=== PATIENT | male | born 1995 | race Caucasian/White ===

== ENCOUNTER 2021-01-16 17:19 | Emergency (ER) | payer OTHER ==
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
[2021-01-16] MEDS ORDERED: HYDROmorphone 2 MG/ML VIAL IM STA ×2 (18:47→20:11)
[2021-01-16] MEDS ORDERED: KETOROLAC 15 MG/ML VIAL IM STA (18:47)
[2021-01-16] MEDS ORDERED: oxyCODONE/ACET 5/325 Prepack 4 PO STA (20:03)
[2021-01-16 20:15] VITALS: BP 133/92
--- NOTE | 2021-01-16 20:29 | Ultrasound Report ---
PROCEDURE: Duplex Ext Veins Right INDICATIONS: right lower leg pain, recent surgery and travel TECHNIQUE: Real-time imaging, as well as color and pulse Doppler interrogation, were performed of the lower extr emity deep veins from the inguinal ligament to the popliteal fossa. COMPARISON: None. FINDINGS: The deep veins are normally compressible, and free of intraluminal thrombus. Color and pu lse Doppler demonstrate normal phasic intraluminal flow. There is normal augmentation response to di stal compression maneuver. IMPRESSION: The deep venous system appears free of thrombosis into the popliteal area, but calf vein dialysis is limited by presence of stitches. Note is made of what appears to be small Goyal's cyst at the medial and lateral right knee area, keny uring up to 2.2 x 0.7 x 1.9 cm medially and more laterally 2.0 x 1.6 x 0.6 cm. Reviewed by: Rafat Chery MD on 01/16/2021 8:28 PM PDT Approved by: Rafat Chery MD on 01/16/2021 8:28 PM PDT Station ID: [id number]
== END 2021-01-16 20:35 | disposition home or self-care (01) ==
LOC: ED 17:19
DX: G89.18 Other acute postprocedural pain (principal); Z76.0 Encounter for issue of repeat prescription; Z87.891 Personal history of nicotine dependence
CPT/HCPCS: 93971; 96372; 99283; J1170

== ENCOUNTER 2021-01-21 09:41 | Outpatient (CLI) | payer OTHER ==
--- NOTE | 2021-01-21 10:51 | XRAY Report ---
PROCEDURE: Tib/Fib RT INDICATIONS: RIGHT TIB/FIB PX TECHNIQUE: 2 views of the tibia and fibula were acquired. COMPARISON: None available. FINDINGS: Bones: Postsurgical changes are demonstrated status post prior open reduction and internal fixation of a mildly comminuted tibial shaft fracture. Intramedullary glen is present with proximal and distal interlocking screws. There is also a mildly comminuted fibular shaft fracture demonstrated. The fract ure lines remain visible with suggestion of early callus formation. Soft tissues: There are nonspecific clustered soft tissue calcifications medial to the distal tibial shaft IMPRESSION: 1. Postsurgical and posttraumatic changes demonstrated status post ORIF of a distal tibial shaft frac ture. No definite evidence of hardware failure. 2. Healing fractures of the tibial and fibular shafts. Reviewed by: Kvng Merchant MD on 01/21/2021 10:49 AM PDT Approved by: Kvng Merchant MD on 01/21/2021 10:49 AM PDT Station ID: [id number]
== END 2021-01-21 23:59 | disposition home or self-care (01) ==
LOC: DI.N 09:41
PROVIDERS: ATTEND Orthopaedic Surgery
DX: S82.831D Other fracture of upper and lower end of right fibula, subsequent encounter for closed fracture with routine healing (principal); S82.301D Unspecified fracture of lower end of right tibia, subsequent encounter for closed fracture with routine healing

== ENCOUNTER 2021-01-25 15:36 | Emergency (ER) | payer OTHER ==
[2021-01-25 15:58] VITALS: BP 102/79
[2021-01-25] MEDS ORDERED: oxyCODONE 5 MG TABLET PO STA (16:14)
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
== END 2021-01-25 16:25 | disposition home or self-care (01) ==
LOC: ED 15:36
DX: G89.18 Other acute postprocedural pain (principal); Z76.0 Encounter for issue of repeat prescription; Z79.82 Long term (current) use of aspirin; Z87.891 Personal history of nicotine dependence
CPT/HCPCS: 99282; 99284; A9270

== ENCOUNTER 2021-03-04 09:15 | Outpatient (CLI) | payer OTHER ==
--- NOTE | 2021-03-05 14:41 | XRAY Report ---
PROCEDURE: Tib/Fib RT INDICATIONS: DISPLACED TRANSVERSE FX OF SHAFT OF R TIBIA TECHNIQUE: 2 views of the tibia and fibula were acquired. COMPARISON: X-ray of the right tibia/fibula, 2 views, 01/21/2021. FINDINGS: Bones: Open reduction and internal fixation of distal tibial and fibular shaft fractures. Fracture barbara cencies are less distinct. Alignment is anatomic. Soft tissues: No suspicious soft tissue calcifications or masses. IMPRESSION: Healing distal tibial and fibular shaft fractures. Reviewed by: Mimi Sutherland MD on 03/05/2021 2:40 PM PDT Approved by: Mimi Sutherland MD on 03/05/2021 2:40 PM PDT Station ID: [id number]
== END 2021-03-04 23:59 | disposition home or self-care (01) ==
LOC: DI.N 09:15
PROVIDERS: ATTEND Orthopaedic Surgery
DX: S82.301E Unspecified fracture of lower end of right tibia, subsequent encounter for open fracture type I or II with routine healing (principal); S82.831E Other fracture of upper and lower end of right fibula, subsequent encounter for open fracture type I or II with routine healing

== ENCOUNTER 2021-03-15 10:45 | Emergency (ER) | payer OTHER ==
[2021-03-15 10:59] VITALS: BP 132/78
[2021-03-15] MEDS ORDERED: KETOROLAC 60 MG/2 ML VIAL IM STA (11:25)
--- NOTE | 2021-03-15 11:44 | XRAY Report ---
PROCEDURE: Tib/Fib RT INDICATIONS: hardware in place contusion/pain mid shaft TECHNIQUE: 2 views of the tibia and fibula were acquired. COMPARISON: Prior tibia/fibula plain film imaging 03/04/2021, obtained prior to current trauma. FINDINGS: Bones: No new fractures or dislocations. Continued healing without significant change in alignment at the distal tibia and fibular diaphyseal fractures, with long medullary glen expiratory transverse s uperior and inferior cortical screws showing no sign of loosening or disruption. No suspicious bony l esions. Soft tissues: No suspicious soft tissue calcifications or masses. IMPRESSION: Recent trauma earlier today, continued healing without change in alignment at the fracture planes pre viously present at the distal tibial and fibular diaphysis and no change in the fixation or alignment of the medullary glen and fixation screws. Reviewed by: Rafat Chery MD on 03/15/2021 11:43 AM PDT Approved by: Rafat Chery MD on 03/15/2021 11:43 AM PDT Station ID: [id number]
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
== END 2021-03-15 12:24 | disposition home or self-care (01) ==
LOC: ED 10:45
DX: S80.11XA Contusion of right lower leg, initial encounter (principal); V98.8XXA Other specified transport accidents, initial encounter; Y93.55 Activity, bike riding; Y92.830 Public park as the place of occurrence of the external cause; Z87.891 Personal history of nicotine dependence
CPT/HCPCS: 96372; 99283; 99284

== ENCOUNTER 2021-03-24 17:53 | Outpatient (CLI) | payer OTHER ==
--- NOTE | 2021-03-25 14:33 | XRAY Report ---
PROCEDURE: Tib/Fib RT INDICATIONS: DISPLACED TRANSVERSE FX OF SHAFT OF R TIBIA TECHNIQUE: 2 views of the tibia and fibula were acquired. COMPARISON: Tib-fib x-ray 03/15/2021. FINDINGS: Bones: There is intramedullary fixation of the tibia. There is good anatomic alignment. Distal tibial fracture is noted, with minimally less prominent appearance of some fracture lucencies. As a comminu domingo fracture of the mid fibula, unchanged. No suspicious bony lesions. Soft tissues: No suspicious soft tissue calcifications or masses. IMPRESSION: Stable alignment, fixation and healing of tibia and fibular fractures. Reviewed by: Jade Monroy MD on 03/25/2021 2:32 PM PDT Approved by: Jade Monroy MD on 03/25/2021 2:32 PM PDT Station ID: [id number]
== END 2021-03-24 23:59 | disposition home or self-care (01) ==
LOC: DI.N 17:53
PROVIDERS: ATTEND Family Medicine
DX: S82.301E Unspecified fracture of lower end of right tibia, subsequent encounter for open fracture type I or II with routine healing (principal); S82.831E Other fracture of upper and lower end of right fibula, subsequent encounter for open fracture type I or II with routine healing

== ENCOUNTER 2021-04-20 10:41 | Outpatient (CLI) | payer OTHER ==
--- NOTE | 2021-04-20 17:23 | XRAY Report ---
PROCEDURE: Tib/Fib RT INDICATIONS: FRACTURE OF SHAFT OF RIGHT TIBIA TECHNIQUE: 2 views of the tibia and fibula were acquired. COMPARISON: 03/24/2021 FINDINGS: Bones: Again noted is an IM glen bridging a distal tibial shaft fracture. An associated mildly comminu domingo distal fibular shaft fracture is again noted. There has been slight interval progress in healing with slight increase in nonbridging callus formation. No evidence of hardware failure or loosening. N o suspicious bony lesions. Soft tissues: No suspicious soft tissue calcifications or masses. IMPRESSION: Slight interval progress in healing of distal tibia and fibular fractures Reviewed by: Anshul Alanis MD on 04/20/2021 5:21 PM PDT Approved by: Anshul Alanis MD on 04/20/2021 5:21 PM PDT Station ID: [id number]
== END 2021-04-20 10:42 | disposition home or self-care (01) ==
LOC: DI.N 10:41
PROVIDERS: ATTEND Orthopaedic Surgery
DX: S82.221D Displaced transverse fracture of shaft of right tibia, subsequent encounter for closed fracture with routine healing (principal); S82.831D Other fracture of upper and lower end of right fibula, subsequent encounter for closed fracture with routine healing

== ENCOUNTER 2021-04-21 10:40 | Emergency (ER) | payer OTHER ==
[2021-04-21 10:58] VITALS: BP 145/84
[2021-04-21] MEDS ORDERED: oxyCODONE 5 MG TABLET PO STA (11:04)
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
== END 2021-04-21 11:19 | disposition home or self-care (01) ==
LOC: ED 10:40
DX: T85.848A Pain due to other internal prosthetic devices, implants and grafts, initial encounter (principal); G89.28 Other chronic postprocedural pain; Y83.8 Other surgical procedures as the cause of abnormal reaction of the patient, or of later complication, without mention of misadventure at the time of the procedure; Y79.8 Miscellaneous orthopedic devices associated with adverse incidents, not elsewhere classified; Z87.891 Personal history of nicotine dependence
CPT/HCPCS: 99282; 99283; A9270

== ENCOUNTER 2021-05-03 11:10 | Outpatient (CLI) | payer OTHER ==
[2021-05-03 18:17] LABS: BASOPHILS # (AUTO) 0.1 10^3/uL (0.0-0.1); BASOPHILS % (AUTO) 0.8 %; EOSINOPHILS # (AUTO) 0.2 10^3/uL (0.0-0.7); EOSINOPHILS % (AUTO) 2.3 %; HCT - HEMATOCRIT 46.9 % (42.0-52.0); HGB - HEMOGLOBIN 15.1 g/dL (14.0-18.0); LYMPHOCYTES # (AUTO) 0.9 10^3/uL (1.5-3.5); LYMPHOCYTES % (AUTO) 14.4 %; MEAN CORPUSCULAR HEMOGLOBIN 29.8 pg (27.0-31.0); MEAN CORPUSCULAR HGB CONC 32.2 g/dL (32.0-36.0); MEAN CORPUSCULAR VOLUME 92.7 fL (80.0-94.0); MEAN PLATELET VOLUME 10.1 fL (7.4-11.4); MONOCYTES # (AUTO) 0.9 10^3/uL (0.0-1.0); MONOCYTES % (AUTO) 13.6 %; NEUTROPHILS # (AUTO) 4.5 10^3/uL (1.5-6.6); NEUTROPHILS % (AUTO) 68.4 %; PLT - PLATELET COUNT 350 10^3/uL (130-450); RED BLOOD COUNT 5.06 10^6/uL (4.70-6.10); RED CELL DISTRIBUTION WIDTH 12.3 % (12.0-15.0); WHITE BLOOD COUNT 6.5 x10^3/uL (4.8-10.8)
[2021-05-03 18:33] LABS: ALBUMIN 4.7 g/dL (3.2-5.5); ALBUMIN/GLOBULIN RATIO 1.6 (1.0-2.2); BILIRUBIN,TOTAL 0.9 mg/dL (0.2-1.0); CALCIUM 9.2 mg/dL (8.5-10.3); CREATININE 0.9 mg/dL (0.6-1.2); POTASSIUM 3.8 mmol/L (3.5-5.0); TOTAL PROTEIN 7.6 g/dL (6.7-8.2)
== END 2021-05-03 23:59 | disposition home or self-care (01) ==
LOC: LAB.N 11:10
PROVIDERS: ATTEND Physician Assistant Medical
DX: R10.13 Epigastric pain (principal)
CPT/HCPCS: 36415; 80053; 83690; 85025

== ENCOUNTER 2021-05-03 11:12 | Outpatient (CLI) | payer OTHER ==
--- NOTE | 2021-05-03 12:29 | XRAY Report ---
PROCEDURE: Abdomen 2 View X-Ray INDICATIONS: Abdominal pain for 7 days. TECHNIQUE: 1 view of the abdomen were acquired. COMPARISON: None. FINDINGS: ABDOMEN: Nonobstructive bowel gas pattern. BONES/SOFT TISSUES: No acute abnormality. IMPRESSION: 1.No evidence for acute findings Reviewed by: Artemio Yu MD on 05/03/2021 12:27 PM PDT Approved by: Artemio Yu MD on 05/03/2021 12:27 PM PDT Station ID: [id number]
== END 2021-05-03 23:59 ==
LOC: DI.N 11:12
PROVIDERS: ATTEND Physician Assistant Medical
DX: R10.13 Epigastric pain (principal)

== ENCOUNTER 2021-05-03 19:36 | Emergency (ER) | payer OTHER ==
[2021-05-03 20:00] LABS: BASOPHILS % (AUTO) 0.5 %; EOSINOPHILS # (AUTO) 0.1 10^3/uL (0.0-0.7); EOSINOPHILS % (AUTO) 1.7 %; HCT - HEMATOCRIT 46.2 % (42.0-52.0); HGB - HEMOGLOBIN 15.4 g/dL (14.0-18.0); LYMPHOCYTES # (AUTO) 0.9 10^3/uL (1.5-3.5); LYMPHOCYTES % (AUTO) 14.2 %; MEAN CORPUSCULAR HEMOGLOBIN 30.2 pg (27.0-31.0); MEAN CORPUSCULAR HGB CONC 33.3 g/dL (32.0-36.0); MEAN CORPUSCULAR VOLUME 90.6 fL (80.0-94.0); MEAN PLATELET VOLUME 9.1 fL (7.4-11.4); MONOCYTES % (AUTO) 15.9 %; NEUTROPHILS % (AUTO) 67.4 %; PLT - PLATELET COUNT 345 10^3/uL (130-450)
[2021-05-03 20:11] LABS: ALBUMIN 4.8 g/dL (3.2-5.5); ALBUMIN/GLOBULIN RATIO 1.8 (1.0-2.2); BILIRUBIN,TOTAL 0.8 mg/dL (0.2-1.0); CALCIUM 9.1 mg/dL (8.5-10.3); CREATININE 0.9 mg/dL (0.6-1.2); POTASSIUM 3.6 mmol/L (3.5-5.0); TOTAL PROTEIN 7.5 g/dL (6.7-8.2)
[2021-05-03 21:07] LABS: BILIRUBIN,URINE NEGATIVE (NEGATIVE); CLARITY,URINE CLEAR (CLEAR); GLUCOSE, URINE (UA) NEGATIVE (NEGATIVE); KETONES,URINE (UA) NEGATIVE (NEGATIVE); LEUKOCYTE ESTERASE, URINE NEGATIVE (NEGATIVE); NITRITE,URINE NEGATIVE (NEGATIVE); OCCULT BLOOD,URINE NEGATIVE (NEGATIVE); PH,URINE 5.5 PH (5.0-7.5); PROTEIN,URINE NEGATIVE (NEGATIVE); UROBILINOGEN,URINE 0.2 (NORMAL) E.U./dL (NORMAL)
[2021-05-03] MEDS ORDERED: PROMETHAZINE 25 MG TABLET PO STA (21:20)
--- NOTE | 2021-05-03 21:22 | ED Physician Documentation ---
History of Present Illness - Stated complaint Stated Complaint: NAUSEA/DIARRHEA - Chief complaint Chief Complaint: Abd Pain - History obtained from History obtained from: Patient - Additonal information Additional information: 26-year-old man presents with nausea, vomiting, and diarrhea for the past week, seen by a PA today. Patient has been having 20 episodes of diarrhea daily. Patient is vaccinated against COVID-19 (). Of note, patient recently stopped taking opioids. Denies fever, abdominal pain, urinary symptoms. Review of Systems Ten Systems: 10 systems reviewed and negative Constitutional: reports: Myalgias. denies: Fever, Chills GI: reports: Nausea, Vomiting, Diarrhea. denies: Abdominal Pain PD PAST MEDICAL HISTORY - Past Medical History Cardiovascular: None Respiratory: None Neuro: None Endocrine/Autoimmune: None GI: None : None HEENT: None Psych: None Musculoskeletal: None Derm: Eczema - Past Surgical History Past Surgical History: Yes Ortho: Other - Present Medications Home Medications: Ambulatory Orders Medication Instructions Recorded Confirmed Acetaminophen [Tylenol] 650 mg PO Q6H PRN 01/16/21 01/16/21 Aspirin [Reese] 325 mg PO DAILY 01/16/21 01/16/21 Gabapentin [Neurontin] 300 mg PO TID 01/16/21 01/16/21 Naproxen Sodium [Naprelan] 375 mg PO TID #20 tab 01/16/21 Ondansetron Odt [Zofran Odt] 4 mg TL Q6H PRN 01/16/21 01/16/21 Oxycodone HCl 10 mg PO Q6H PRN #18 tablet 01/16/21 Ibuprofen [Motrin] 800 mg PO Q8H PRN #30 tablet 01/25/21 Oxycodone HCl/Acetaminophen 1 - 2 each PO Q6H PRN #30 tablet 01/25/21 [Percocet 5-325 mg Tablet] Oxycodone HCl/Acetaminophen 1 - 2 each PO Q6H PRN #14 tablet 03/15/21 [Percocet 5-325 mg Tablet] Oxycodone HCl/Acetaminophen 1 - 2 each PO Q6H PRN #20 tablet 04/21/21 [Percocet 5-325 mg Tablet] Promethazine [Phenergan] 25 mg PO Q6H PRN #10 tablet 05/03/21 - Allergies Allergies/Adverse Reactions: Allergies Allergy/AdvReac Type Severity Reaction Status Date / Time No Known Drug Allergies Allergy Verified 05/03/21 19:41 - Social History Does the pt smoke?: No Smoking Status: Former smoker Does the pt drink ETOH?: Yes Does the pt have substance abuse?: No - Immunizations Immunizations are current?: Yes - POLST Patient has POLST: No PD ED PE NORMAL - Vitals Vital signs reviewed: Yes - General General: Alert and oriented X 3, No acute distress, Well developed/nourished - HEENT HEENT: Atraumatic, PERRL, EOMI - Neck Neck: Supple, no meningeal sign - Cardiac Cardiac: RRR - Respiratory Respiratory: No respiratory distress, Clear bilaterally - Abdomen Abdomen: Non tender, Non distended - Extremities Extremities: No deformity - Neuro Neuro: Alert and oriented X 3 Results - Vitals Vitals: Vital Signs - 24 hr 05/03/21 05/03/21 19:38 22:03 Temperature 36.8 C Heart Rate 101 H 93 Respiratory 18 16 Rate Blood Pressure 139/77 H 131/72 H O2 Saturation 100 98 Oxygen O2 Source Room air - Labs Labs: Laboratory Tests 05/03/21 05/03/21 05/03/21 19:50 19:50 21:00 WBC 6.0 RBC 5.10 Hgb 15.4 Hct 46.2 MCV 90.6 MCH 30.2 MCHC 33.3 RDW 12.0 Plt Count 345 MPV 9.1 Neut # (Auto) 4.0 Lymph # (Auto) 0.9 L [place] # (Auto) 1.0 Eos # (Auto) 0.1 Baso # (Auto) 0.0 Absolute Nucleated RBC 0.00 Nucleated RBC % 0.0 Sodium 139 Potassium 3.6 Chloride 103 Carbon Dioxide 28 Anion Gap 8.0 BUN 9 Creatinine 0.9 Estimated GFR (MDRD) 101 Glucose 98 Calcium 9.1 Total Bilirubin 0.8 AST 18 ALT 20 Alkaline Phosphatase 96 Total Protein 7.5 Albumin 4.8 Globulin 2.7 Albumin/Globulin Ratio 1.8 Lipase 28 Urine Color YELLOW Urine Clarity CLEAR Urine pH 5.5 Ur Specific [place] 1.015 Urine Protein NEGATIVE Urine Glucose (UA) NEGATIVE Urine Ketones NEGATIVE Urine Occult Blood NEGATIVE Urine Nitrite NEGATIVE Urine Bilirubin NEGATIVE Urine Urobilinogen 0.2 (NORMAL) Ur Leukocyte Esterase NEGATIVE Ur Microscopic Review NOT INDICATED Urine Culture Comments NOT INDICATED PD MEDICAL DECISION MAKING - ED course ED course: 26-year-old man presents with likely opiate withdrawal. Return precautions given. Patient will follow up with his primary doctor. Covid test sent. Departure - Departure Disposition: 01 Home, Self Care Clinical Impression: Nausea and vomiting, Diarrhea Condition: Good Instructions: ED Nausea Vomiting Prescriptions: Promethazine [Phenergan] 25 mg PO Q6H PRN #10 tablet PRN Reason: Nausea / Vomiting Comments: You were seen in the emergency department for nausea, vomiting, and diarrhea. Please return to the emergency department if you have a temperature of 100.4, if you are not completely unable to keep down liquids, if you have any other new or worsening symptoms or other concerns. A Covid swab was sent which should result in 2 to 3 days. You can view the results on your patient health portal. We will call you if the result is positive. Make sure that you isolate at home until that time. Have a friend buy pedialyte or other electrolyte solution for you. Follow-up with [facility]. Discharge Date/Time: 05/03/21 21:45
[2021-05-03 22:04] VITALS: BP 131/72
== END 2021-05-03 21:45 | disposition home or self-care (01) ==
LOC: ED 19:36
DX: R11.2 Nausea with vomiting, unspecified (principal); R19.7 Diarrhea, unspecified; M79.10 Myalgia, unspecified site; Z20.822 Contact with and (suspected) exposure to COVID-19; Z87.891 Personal history of nicotine dependence; Z79.82 Long term (current) use of aspirin
CPT/HCPCS: 36415; 80053; 81003; 83690; 85025; 87635; 99283; Q0169; 81001; 87086

== ENCOUNTER 2021-06-09 08:00 | Outpatient (CLI) | payer OTHER | END 2021-06-09 23:59 | disposition home or self-care (01) | LOC: LAB.N 08:00 | PROVIDERS: ATTEND Physician Assistant | DX: R05.3 Chronic cough (principal); Z20.822 Contact with and (suspected) exposure to COVID-19 ==

== ENCOUNTER 2021-06-21 08:45 | Outpatient (CLI) | payer OTHER ==
--- NOTE | 2021-06-21 12:32 | XRAY Report ---
PROCEDURE: Tib/Fib RT INDICATIONS: TRANSVERSE FX OF RIGHT TIBIA TECHNIQUE: 2 views of the tibia and fibula were acquired. COMPARISON: Prior studies dating back to March 24, 2021 FINDINGS: BONES: Redemonstrated fracture deformity of the distal fibula/tibia with callus formation about the f racture site. No evidence of tibial hardware compromise. SOFT TISSUES: No focal abnormality. IMPRESSION: 1.Ongoing healing of the patient's fractures. Reviewed by: Artemio Yu MD on 06/21/2021 12:31 PM PST Approved by: Artemio Yu MD on 06/21/2021 12:31 PM PST Station ID: [id number]
== END 2021-06-21 23:59 | disposition home or self-care (01) ==
LOC: DI.N 08:45
PROVIDERS: ATTEND Orthopaedic Surgery
DX: S82.221D Displaced transverse fracture of shaft of right tibia, subsequent encounter for closed fracture with routine healing (principal)

== ENCOUNTER 2021-11-01 12:57 | Outpatient (CLI) | payer OTHER ==
--- NOTE | 2021-11-01 14:48 | XRAY Report ---
PROCEDURE: Knee 2 View LT INDICATIONS: L KNEE PX TECHNIQUE: 2 views of the left knee(s) were acquired. COMPARISON: None. FINDINGS: Bones: No fractures or dislocations. No suspicious bony lesions. Soft tissues: Small to moderate suprapatellar joint effusion is seen. No suspicious soft tissue calc ifications. IMPRESSION: Small to moderate joint effusion. No fracture or dislocation. If indicated, MRI of knee can be done for further evaluation of internal derangement. Reviewed by: Deny Bell MD on 11/01/2021 2:46 PM PDT Approved by: Deny Bell MD on 11/01/2021 2:46 PM PDT Station ID: [id number]
--- NOTE | 2021-11-01 16:48 | XRAY Report ---
PROCEDURE: Shoulder 3 View RT INDICATIONS: R SHOULDER PX TECHNIQUE: 3 views of the shoulder were acquired. COMPARISON: None. FINDINGS: Bones: No fractures or dislocations. No suspicious bony lesions. Visualized ribs appear intact. Soft tissues: No suspicious soft tissue calcifications. IMPRESSION: Normal right shoulder. Reviewed by: Queta Cortes MD on 11/01/2021 4:46 PM PDT Approved by: Queta Cortes MD on 11/01/2021 4:46 PM PDT Station ID: [id number]
== END 2021-11-01 23:59 | disposition home or self-care (01) ==
LOC: DI.N 12:57
PROVIDERS: ATTEND Nurse Practitioner
DX: M25.511 Pain in right shoulder (principal); M25.562 Pain in left knee; M25.462 Effusion, left knee

== ENCOUNTER 2022-07-29 19:51 | Emergency (ER) | payer OTHER ==
[2022-07-29 20:55] VITALS: BP 125/84
== END 2022-07-29 21:47 | disposition left against medical advice (07) ==
LOC: ED 19:51
DX: Z53.29 Procedure and treatment not carried out because of patient's decision for other reasons (principal)